=== PATIENT | female | born 1945 | race Caucasian/White ===

== ENCOUNTER → 2017-01-29 | Outpatient (CLI) | payer OTHER ==
[~2017-01-29] MED LIST: ACETAMINOPHEN650 M5 PO; AMITRIPTYLINE H25 M3 PO; AMITRIPTYLINE H50 M2 PO; AMLODIPINE BESYL5 M1 PO; ASPIR 8181 MG PO; BACLOFEN 10MG T10 M1 PO; BACLOFEN 10MG T10 MG PO; C-1000 WITH R1000 MG PO; CALCIUM 500 WI1 EAC4 PO; CALCIUM WITH V PO; CIPRO250 M1 PO; CIPROFLOXACIN500 M1 PO; COLACE100 MG PO; ESTRACE1 MG PO; ESTRADIOL 1 MG T1 M1 PO; FOSAMAX 70 MG T70 M1 PO; GENTAMICIN IR; HYDROCODONE-AP1 EACH PO; HYDROXYCHLOROQ200 M1 PO; KEFLEX500 MG PO; MELOXICAM7.5 MG PO; MOBIC7.5 MG PO; MOM PO; NORCO 5-325 TA1 EACH PO; PREMPRO 0.625-1 EACH PO; PRILOSEC 20 MG20 MG PO; PROMETHAZINE/C118 ML PO; PROTONIX40 M2 PO; SIMETHICON CHEW80 M1 PO; TYLENOL325 MG PO; VITAMIN C + RO500 MG PO; VITAMIN D1000 UNI1 PO
== END ==
LOC: RAD 01:15
DX: Z12.31 Encounter for screening mammogram for malignant neoplasm of breast (principal)

== ENCOUNTER 2018-03-15 11:07 | Emergency (ER) | payer OTHER ==
[~2018-03-15] VITALS: Ht 162.6 cm; Wt 83.9 kg
--- NOTE | ~2018-03-15 | EKG ---
[address] [address] ELECTROCARDIOGRAM REPORT Name: LIZZ MANNING Room #: DEP [facility]#: [id number] Admission: 03/15/18 Attend Phys: Discharge: 03/15/18 Date of : 43 Report #: [id number] THIS REPORT FOR: //name// [facility] ED Test Date: 2018-03-15 Test Time: 11:15:56 Pat Name: LIZZ MANNING Department: Room: Gender: F Icer Air Conditioning: [place] : 1945 Requested By: Amador Chapa Order Number: [id number] MD: Gabriel Ying Measurements Intervals [place] Rate: 60 P: 54 [place]: 179 QRS: -12 QRSD: 93 T: 75 QT: 443 QTc: 443 Interpretive Statements Sinus rhythm LVH with secondary repolarization abnormality Compared to ECG 03/18/2014 13:56:50 Early repolarization now present Sinus bradycardia no longer present T-wave abnormality no longer present Electronically Signed On 03-16-2018 16:48:35 CDT by Gabriel Ying [email or web address] <ELECTRONICALLY SIGNED> By: Gabriel Ying MD 03/16/18 1648 1115 1115 Gabriel Ying MD /EPI
[2018-03-15] MEDS ORDERED: ADULT ASPIRIN81 MG PO (11:17)
[2018-03-15] MEDS ORDERED: ESTRADIOL 1 MG T1 M1 PO (11:18)
[2018-03-15] MEDS ORDERED: DIPROLENE 0.05%15 GM TOP (11:21)
[2018-03-15 11:32] LABS: ABSOLUTE NEUTROPHILS 3.9 thou/uL (1.4-8.2); BASOPHILS 1.2 % (0.0-2.0); EOSINOPHILS 6.7 % (0.0-3.0); HEMOGLOBIN 14.3 gm/dL (12.0-15.0); LYMPHOCYTES 31.9 % (24.0-44.0); MCH 29.8 pg (26.0-34.0); MCHC 33.9 g/dL (28.0-37.0); MCV 87.8 fL (80.0-100.0); MONOCYTES 4.7 % (1.0-8.0); PLATELET COUNT 270 thou/uL (150-400); POLYS 55.5 % (36.0-66.0); RBC 4.79 mil/uL (4.20-5.00); RDW 13.7 % (10.5-14.5); WBC 7.1 thou/uL (4.0-11.0)
[2018-03-15 11:42] LABS: ANION GAP 4 mmol/L (7-16); BUN 15 mg/dL (7-18); CALCIUM 9.6 mg/dL (8.5-10.1); CHLORIDE 105 mmol/L (98-107); CO2 31 mmol/L (21-32); CREATININE 1.1 mg/dL (0.6-1.0); GLUCOSE 102 mg/dL (74-106); SODIUM 140 mmol/L (136-145)
[2018-03-15 11:50] LABS: ALBUMIN 3.4 g/dL (3.4-5.0); SGOT 25 U/L (15-37); SGPT 28 U/L (30-65); TOTAL BILIRUBIN 0.4 mg/dL (<0.1-1.0); TOTAL PROTEIN 7.2 g/dL (6.4-8.2); TROPONIN-I <0.06 ng/mL (<0.06)
[2018-03-15 12:24] LABS: URINE BILIRUBIN NEGATIVE (Negative); URINE BLOOD NEGATIVE (Negative); URINE CLARITY CLEAR; URINE COLOR YELLOW; URINE GLUCOSE-RANDOM* NEGATIVE (Negative); URINE KETONES NEGATIVE (Negative); URINE LEUKOCYTES-REFLEX 2+ (Negative); URINE NITRITE-REFLEX NEGATIVE (Negative); URINE PROTEIN (DIPSTICK) NEGATIVE (Negative); URINE UROBILINOGEN 0.2 E.U./dl (0.2-1.0)
[2018-03-15 12:30] LABS: SQUAMOUS 4-10 Moderate /LPF (0-3)
[2018-03-15 12:31] LABS: BACTERIA-REFLEX 1-9 Few /HPF (None Seen); CASTS None Seen /LPF (None Seen); CRYSTALS None Seen /LPF (None Seen); URINE RBC None Seen /HPF (0-2); URINE WBC-REFLEX 6-15 Few /HPF (0-5)
[2018-03-15] MEDS ORDERED: KEFLEX500 M1 PO (12:32)
[2018-03-15] MEDS ORDERED: VALIUM2 MG PO (12:32)
[2018-03-15] MEDS ORDERED: ANTIVERT25 MG PO (12:32)
[2018-03-15 13:11] VITALS: BP 169/69
== END 2018-03-15 13:12 | disposition home or self-care (01) ==
LOC: ER 11:07
PROVIDERS: Emergency Medicine
DX: H81.10 Benign paroxysmal vertigo, unspecified ear (principal); H93.13 Tinnitus, bilateral; N39.0 Urinary tract infection, site not specified; Z88.2 Allergy status to sulfonamides; Z88.5 Allergy status to narcotic agent; Z88.8 Allergy status to other drugs, medicaments and biological substances; Z79.899 Other long term (current) drug therapy

== ENCOUNTER → 2019-11-19 | Outpatient (CLI) | payer MEDICARE ==
[~2019-11-19] MED LIST changes: +ADULT ASPIRIN81 MG PO; +ANTIVERT25 MG PO; +DIPROLENE 0.05%15 GM TOP; +KEFLEX500 M1 PO; +VALIUM2 MG PO
== END ==
LOC: SJCVC 14:29
PROVIDERS: ATTEND Internal Medicine Cardiovascular Disease
DX: R94.31 Abnormal electrocardiogram [ECG] [EKG] (principal); I10 Essential (primary) hypertension; E78.1 Pure hyperglyceridemia; J45.909 Unspecified asthma, uncomplicated; Z79.899 Other long term (current) drug therapy

== ENCOUNTER → 2019-12-02 | Outpatient (CLI) | payer OTHER ==
[~2019-12-02] MED LIST changes: +LOPRESSOR50 MG PO; +NEURONTIN300 MG PO; +SYMBICORT80 MCG/4.1 INH
== END ==
LOC: SJCVCIMAG 09:19
PROVIDERS: ATTEND Internal Medicine Cardiovascular Disease
DX: R00.1 Bradycardia, unspecified (principal); I10 Essential (primary) hypertension; E78.5 Hyperlipidemia, unspecified; R00.2 Palpitations; R06.09 Other forms of dyspnea; Z79.82 Long term (current) use of aspirin

== ENCOUNTER → 2019-12-03 | Outpatient (CLI) | payer MEDICARE | LOC: SJCVCIMAG 07:14 | PROVIDERS: ATTEND Internal Medicine Cardiovascular Disease | DX: R00.1 Bradycardia, unspecified (principal); R00.2 Palpitations; R07.9 Chest pain, unspecified; R06.00 Dyspnea, unspecified; I10 Essential (primary) hypertension; E78.1 Pure hyperglyceridemia; Z79.82 Long term (current) use of aspirin; Z79.899 Other long term (current) drug therapy ==

== ENCOUNTER → 2019-12-09 | Outpatient (CLI) | payer OTHER ==
[~2019-12-09] VITALS: Ht 157.5 cm; Wt 79.5 kg
[2019-12-09 07:17] VITALS: BP 126/61
[2019-12-09 07:28] LABS: HEMATOCRIT 41.2 % (37.0-47.0); HEMOGLOBIN 13.6 gm/dL (12.0-15.0); MCH 29.9 pg (26.0-34.0); MCHC 33.1 g/dL (28.0-37.0); MCV 90.2 fL (80.0-100.0); RBC 4.56 mil/uL (4.20-5.00); RDW 14.4 % (10.5-14.5); WBC 6.8 thou/uL (4.0-11.0)
[2019-12-09 07:30] LABS: CALCIUM 8.9 mg/dL (8.5-10.1); CREATININE 1.3 mg/dL (0.6-1.0); POTASSIUM 3.8 mmol/L (3.5-5.1)
--- NOTE | 2019-12-09 13:03 | CATHLAB ---
[facility] [place] [address] INVASIVE PROCEDURE REPORT Name: LIZZ MANNING Room #: REG SHAKEEL Ramirez#: [id number] Admission: 12/09/19 Attend Phys: Kem Fernandez MD Discharge: Date of : 43 Report #: [id number] THIS REPORT FOR: cc: Raymond Alonso MD, Kirk D. MD Park, Jin S. MD ~ APPROVED REPORT Study performed: 12/09/2019 07:42:11 Patient Details Patient Status: Out-Patient Room #: The patient is a 74 year-old female Event Personnel Kem Fernandez Advanced Practice Registered Nurse, Rosalva Manriquez RN RN, Tayla Dos Santos RTR Jenifer Frederick Ja'net RTR Monitor Procedures Performed Left Heart Cath w/or w/o Coronaries [id number] [facility] Art Access - R femoral artery* 24557 Initial Mod Sed Same Phys/QHP Gr5y [id number] Hemostasis with Manual pressure Indication Positive stress test, Chest pain Risk Factors Hypercholesterolemia, Hypertension Procedure Narrative The patient was brought electively to the Cardiac Catheterization Laboratory and was prepped and draped in a sterile manner. The Right Groin^ was infiltrated with 1% Lidocaine subcutaneous anesthesia. A PINNACLE 5FR Sheath #[id number] sheath was inserted into the RFA^. Coronary angiography was performed using coronary diagnostic catheters. The right coronary system was accessed and visualized with a JR4 catheter. The left coronary system was accessed and visualized with a JL4 catheter. The left ventricle was accessed and visualized with a JR4 catheter. Hemostasis was obtained with manual pressure following sheath removal without any complications. The patient tolerated the procedure well and there were no complications associated with the procedure. There was no hematoma. Intraoperative Conscious Sedation [address] [address] INVASIVE PROCEDURE REPORT Name: LIZZ MANNING Room #: REG [facility]#: [id number] Admission: 12/09/19 Attend Phys: Kem Fernandez MD Discharge: Date of : 43 Report #: [id number] Sedation start time: 8:19 Case end Time: 8:43 Fentanyl 50 mcg Versed 1 mg Fluoro Time: 2.50 minutes Dose: DAP 4077.00 cGycm2 1082 mGy Contrast Type and Amount: Omnipaque 75 ml Coronary Angiography The patient's coronary anatomy is right dominant. Diagnostic Cath Left Main The left main artery is a large-caliber vessel, appears angiographically normal. LAD The LAD is a moderate-sized caliber vessel, traverses the anterior wall and wraps around the apex. There is a mild to moderate stenosis in the midsegment, 30 to 40%. Diagonal 1 There is a small caliber vessel, patent with no flow-limiting lesions. Circumflex The left circumflex artery is a moderate-sized caliber vessel with a mild ostial stenosis, 30%. OM1 This is a moderate-sized caliber vessel, divides into several branches. There are no flow-limiting lesions. Right Coronary The RCA is a dominant vessel with mild disease in the proximal segment, 20%. R PDA This is a patent vessel, with no flow-limiting lesions. RPLV This is a patent vessel, with no flow-limiting lesions. Left Ventriculography Left Ventriculography was not performed. Ejection Fraction was 55-60% based off patient's Nuclear Cardiac Stress Test. An LVEDP was checked and there is no gradient across the outflow tract. Hemodynamics The aortic pressure is 161/58 mmHg with a mean of 98 mmHg. The left ventricular pressure is 169/13 mmHg with a mean of mmHg. The left ventricular end diastolic pressure is 17 mmHg. Conclusion 1. 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 [facility] [address] [place] [address] INVASIVE PROCEDURE REPORT Name: LIZZ MANNING Room #: REG CL [facility]#: [id number] Admission: 12/09/19 Attend Phys: Kem Fernandez MD Discharge: Date of : 43 Report #: [id number] 2. Normal LV systolic function. 3. Recommend guideline directed medical therapy. <ELECTRONICALLY SIGNED> By: Kem Fernandez MD 12/09/19 1303 1303 1303 Kem Fernandez MD /CAN
== END | disposition home or self-care (01) ==
LOC: CATH 06:31
PROVIDERS: ATTEND Internal Medicine Cardiovascular Disease
DX: R07.9 Chest pain, unspecified (principal); I25.10 Atherosclerotic heart disease of native coronary artery without angina pectoris; I10 Essential (primary) hypertension; E78.00 Pure hypercholesterolemia, unspecified; M19.90 Unspecified osteoarthritis, unspecified site; E78.5 Hyperlipidemia, unspecified; E78.1 Pure hyperglyceridemia; M79.7 Fibromyalgia; Z98.890 Other specified postprocedural states; Z79.899 Other long term (current) drug therapy; Z79.82 Long term (current) use of aspirin; Z82.49 Family history of ischemic heart disease and other diseases of the circulatory system; Z90.49 Acquired absence of other specified parts of digestive tract; Z90.710 Acquired absence of both cervix and uterus; Z88.2 Allergy status to sulfonamides; Z88.8 Allergy status to other drugs, medicaments and biological substances

== ENCOUNTER → 2019-12-30 | Outpatient (CLI) | payer OTHER | LOC: SJCVC 11:18 | PROVIDERS: ATTEND Internal Medicine Cardiovascular Disease | DX: R94.31 Abnormal electrocardiogram [ECG] [EKG] (principal); I25.10 Atherosclerotic heart disease of native coronary artery without angina pectoris; I47.1 Supraventricular tachycardia; R00.2 Palpitations; I10 Essential (primary) hypertension; I34.0 Nonrheumatic mitral (valve) insufficiency; J45.909 Unspecified asthma, uncomplicated; Z79.82 Long term (current) use of aspirin; Z79.899 Other long term (current) drug therapy; Z82.49 Family history of ischemic heart disease and other diseases of the circulatory system ==

== ENCOUNTER → 2020-03-01 | Outpatient (CLI) | payer OTHER | LOC: SJCVC 13:57 | PROVIDERS: ATTEND Internal Medicine Cardiovascular Disease | DX: R94.31 Abnormal electrocardiogram [ECG] [EKG] (principal); R00.1 Bradycardia, unspecified; R42 Dizziness and giddiness; R00.2 Palpitations; I25.10 Atherosclerotic heart disease of native coronary artery without angina pectoris; Z79.899 Other long term (current) drug therapy ==

== ENCOUNTER 2020-05-27 17:09 | Emergency (ER) | payer OTHER ==
[~2020-05-27] VITALS: Ht 160 cm; Wt 79.4 kg
[2020-05-27] MEDS ORDERED: NORCO 5-325 TA1 EAC2 PO (19:50)
[2020-05-27 19:52] VITALS: BP 148/46
== END 2020-05-27 19:52 | disposition home or self-care (01) ==
LOC: ER 17:09
DX: S02.2XXA Fracture of nasal bones, initial encounter for closed fracture (principal); S80.02XA Contusion of left knee, initial encounter; R04.0 Epistaxis; I10 Essential (primary) hypertension; M19.90 Unspecified osteoarthritis, unspecified site; Z88.2 Allergy status to sulfonamides; Z88.5 Allergy status to narcotic agent; Z88.6 Allergy status to analgesic agent; Z79.82 Long term (current) use of aspirin; Z79.899 Other long term (current) drug therapy; Z90.710 Acquired absence of both cervix and uterus; Z98.890 Other specified postprocedural states; W01.0XXA Fall on same level from slipping, tripping and stumbling without subsequent striking against object, initial encounter; Y93.89 Activity, other specified; Y92.098 Other place in other non-institutional residence as the place of occurrence of the external cause; Y99.9 Unspecified external cause status

== ENCOUNTER → 2020-06-30 | Outpatient (CLI) | payer OTHER ==
[~2020-06-30] MED LIST changes: +NORCO 5-325 TA1 EAC2 PO
== END ==
LOC: SJCVC 09:18
PROVIDERS: ATTEND Internal Medicine Cardiovascular Disease
DX: R94.31 Abnormal electrocardiogram [ECG] [EKG] (principal); R00.1 Bradycardia, unspecified; I25.10 Atherosclerotic heart disease of native coronary artery without angina pectoris; R00.2 Palpitations; I47.1 Supraventricular tachycardia; R42 Dizziness and giddiness; I34.0 Nonrheumatic mitral (valve) insufficiency; M32.9 Systemic lupus erythematosus, unspecified; J45.909 Unspecified asthma, uncomplicated; R26.9 Unspecified abnormalities of gait and mobility; I10 Essential (primary) hypertension; E78.1 Pure hyperglyceridemia; Z79.82 Long term (current) use of aspirin; Z79.899 Other long term (current) drug therapy; Z88.1 Allergy status to other antibiotic agents; Z88.2 Allergy status to sulfonamides

== ENCOUNTER → 2020-12-28 | Outpatient (CLI) | payer OTHER | LOC: SJCVCIMAG 08:50 | PROVIDERS: ATTEND Internal Medicine Cardiovascular Disease | DX: I08.3 Combined rheumatic disorders of mitral, aortic and tricuspid valves (principal); R94.31 Abnormal electrocardiogram [ECG] [EKG]; R00.1 Bradycardia, unspecified; I11.9 Hypertensive heart disease without heart failure; I25.10 Atherosclerotic heart disease of native coronary artery without angina pectoris; I47.1 Supraventricular tachycardia; R42 Dizziness and giddiness; J45.909 Unspecified asthma, uncomplicated; M32.9 Systemic lupus erythematosus, unspecified; Z88.8 Allergy status to other drugs, medicaments and biological substances; Z79.82 Long term (current) use of aspirin; Z79.899 Other long term (current) drug therapy; Z82.49 Family history of ischemic heart disease and other diseases of the circulatory system ==